=== PATIENT | male | born 1975 | race Caucasian/White ===

== ENCOUNTER 2022-08-19 13:03 | Outpatient (CLI) | payer MEDICARE, MEDICAID | END 2022-08-19 13:04 | disposition home or self-care (01) | LOC: CSHWCC 13:03 | PROVIDERS: ATTEND Preventive Medicine Undersea and Hyperbaric Medicine | DX: L89.113 Pressure ulcer of right upper back, stage 3 (principal) | CPT/HCPCS: 11042; 87070; 87077; 87186; 87205; 99203; G0463 ==

== ENCOUNTER 2022-08-31 15:18 | Outpatient (CLI) | payer MEDICARE, OTHER | END 2022-08-31 15:19 | disposition home or self-care (01) | LOC: CSHWCC 15:18 | PROVIDERS: ATTEND Preventive Medicine Undersea and Hyperbaric Medicine | DX: L89.113 Pressure ulcer of right upper back, stage 3 (principal) | CPT/HCPCS: 11042 ==

== ENCOUNTER 2022-09-18 08:09 | Outpatient (CLI) | payer MEDICARE, MEDICAID | END 2022-09-18 08:10 | disposition home or self-care (01) | LOC: CSHWCC 08:09 | PROVIDERS: ATTEND Nurse Practitioner Family | DX: L89.113 Pressure ulcer of right upper back, stage 3 (principal) | CPT/HCPCS: 87070; 87077; 87186; 87205; 97607; 99212; G0463 ==

== ENCOUNTER 2022-10-21 08:08 | Outpatient (CLI) | payer MEDICARE, MEDICAID | END 2022-10-21 08:09 | disposition home or self-care (01) | LOC: CSHWCC 08:08 | PROVIDERS: ATTEND Nurse Practitioner Family | DX: L89.113 Pressure ulcer of right upper back, stage 3 (principal) ==

== ENCOUNTER 2022-11-11 08:10 | Outpatient (CLI) | payer MEDICARE, OTHER | END 2022-11-11 08:11 | disposition home or self-care (01) | LOC: CSHWCC 08:10 | PROVIDERS: ATTEND Nurse Practitioner Family | DX: L89.113 Pressure ulcer of right upper back, stage 3 (principal) | CPT/HCPCS: 11042; 97605 ==

== ENCOUNTER 2022-11-25 08:30 | Outpatient (CLI) | payer MEDICARE, OTHER | END 2022-11-25 08:31 | disposition home or self-care (01) | LOC: CSHWCC 08:30 | PROVIDERS: ATTEND Nurse Practitioner Family | DX: L89.113 Pressure ulcer of right upper back, stage 3 (principal) | CPT/HCPCS: 11042; 97605 ==

== ENCOUNTER 2022-12-17 13:23 | Outpatient (CLI) | payer MEDICARE, MEDICAID | END 2022-12-17 13:24 | disposition home or self-care (01) | LOC: CSHWCC 13:23 | PROVIDERS: ATTEND Nurse Practitioner Family | DX: L89.113 Pressure ulcer of right upper back, stage 3 (principal) ==

== ENCOUNTER 2023-01-12 08:26 | Outpatient (CLI) | payer MEDICARE, MEDICAID | END 2023-01-12 08:27 | disposition home or self-care (01) | LOC: CSHWCC 08:26 | PROVIDERS: ATTEND Nurse Practitioner Family | DX: L89.113 Pressure ulcer of right upper back, stage 3 (principal) | CPT/HCPCS: 11042 ==

== ENCOUNTER 2023-02-02 08:33 | Outpatient (CLI) | payer MEDICARE, OTHER | END 2023-02-02 08:34 | disposition home or self-care (01) | LOC: CSHWCC 08:33 | PROVIDERS: ATTEND Nurse Practitioner Family | DX: L89.113 Pressure ulcer of right upper back, stage 3 (principal) | CPT/HCPCS: 99213; G0463 ==

== ENCOUNTER 2023-03-18 13:11 | Outpatient (CLI) | payer MEDICARE, MEDICAID | END 2023-03-18 13:12 | disposition home or self-care (01) | LOC: CSHWCC 13:11 | PROVIDERS: ATTEND Nurse Practitioner Family | DX: L89.113 Pressure ulcer of right upper back, stage 3 (principal) | CPT/HCPCS: 11042; 97139; G0463; 99212 ==

== ENCOUNTER 2023-04-01 10:50 | Outpatient (CLI) | payer MEDICARE, MEDICAID | END 2023-04-01 10:51 | disposition home or self-care (01) | LOC: CSHWCC 10:50 | PROVIDERS: ATTEND Nurse Practitioner Family | DX: L89.113 Pressure ulcer of right upper back, stage 3 (principal) ==

== ENCOUNTER 2023-05-03 08:23 | Outpatient (CLI) | payer MEDICARE, MEDICAID | END 2023-05-03 08:24 | disposition home or self-care (01) | LOC: CSHWCC 08:23 | PROVIDERS: ATTEND Nurse Practitioner Family | DX: L89.113 Pressure ulcer of right upper back, stage 3 (principal) | CPT/HCPCS: 11042; 11045; 97605 ==

== ENCOUNTER 2023-06-08 08:07 | Outpatient (CLI) | payer MEDICARE, MEDICAID | END 2023-06-08 08:08 | disposition home or self-care (01) | LOC: CSHWCC 08:07 | PROVIDERS: ATTEND Nurse Practitioner Family | DX: L89.113 Pressure ulcer of right upper back, stage 3 (principal); L89.310 Pressure ulcer of right buttock, unstageable | CPT/HCPCS: 11043; 11046; 97139; 97605; G0463; 99213 ==

== ENCOUNTER 2023-07-27 14:16 | Outpatient (CLI) | payer MEDICARE, MEDICAID | END 2023-07-27 14:17 | disposition home or self-care (01) | LOC: CSHWCC 14:16 | PROVIDERS: ATTEND Nurse Practitioner Family | DX: L89.113 Pressure ulcer of right upper back, stage 3 (principal); L89.310 Pressure ulcer of right buttock, unstageable | CPT/HCPCS: 97597 ==

== ENCOUNTER 2023-09-30 13:54 | Outpatient (CLI) | payer MEDICARE | END 2023-09-30 13:55 | disposition home or self-care (01) | LOC: CSHWCC 13:54 | PROVIDERS: ATTEND Physician Assistant | DX: L89.113 Pressure ulcer of right upper back, stage 3 (principal); L89.310 Pressure ulcer of right buttock, unstageable; G82.20 Paraplegia, unspecified | CPT/HCPCS: 99213; G0463 ==